=== PATIENT | male | born 1970 | race Caucasian/White ===

== ENCOUNTER → 2021-01-07 | Outpatient (CLI) | payer OTHER ==
[2021-01-10 17:17] LABS: RNP ANTIBODIES 0.7 AI (0.0-0.9); SJOGREN'S ANTI-SS-A <0.2 AI (0.0-0.9); SJOGREN'S ANTI-SS-B <0.2 AI (0.0-0.9); SMITH ANTIBODIES <0.2 AI (0.0-0.9)
[2021-01-11 13:13] LABS: ALDOLASE 7.9 U/L (3.3-10.3)
[2021-01-21 17:09] LABS: ANTI-EJ AB (RDL) Negative (Negative); ANTI-JO-1 AB (RDL) <20 Units (<20); ANTI-KU AB (RDL) Negative (Negative); ANTI-MDA-5 AB (CADM-140)(RDL) <20 Units (<20); ANTI-MI-2 AB (RDL) Negative (Negative); ANTI-NXP-2 (P140) AB (RDL) <20 Units (<20); ANTI-OJ AB (RDL) Negative (Negative); ANTI-PL-12 AB (RDL) Negative (Negative); ANTI-PL-7 AB (RDL) Negative (Negative); ANTI-PM/SCL-100 AB (RDL) <20 Units (<20); ANTI-SRP AB (RDL) Negative (Negative); ANTI-TIF-1GAMMA AB (RDL) <20 Units (<20); ANTI-U1 RNP AB (RDL) <20 Units (<20); ANTI-U2 RNP AB (RDL) Negative (Negative); ANTI-U3 RNP (FIBRILLARIN)(RDL) Negative (Negative)
== END ==
LOC: LAB 11:47
PROVIDERS: Internal Medicine
DX: M54.5 Low back pain (principal); M25.552 Pain in left hip; G89.29 Other chronic pain; M79.10 Myalgia, unspecified site; M25.50 Pain in unspecified joint; R74.8 Abnormal levels of other serum enzymes; M51.35 Other intervertebral disc degeneration, thoracolumbar region; M16.12 Unilateral primary osteoarthritis, left hip
CPT/HCPCS: 36415; 72100; 73502; 82085; 82550; 83516; 83615; 83874; 84439; 84443; 86140; 86235